=== PATIENT | female | born 1990 | race Caucasian/White ===

== ENCOUNTER 2022-10-15 22:56 | Emergency (ER) | payer MEDICAID, SELFPAY ==
[2022-10-15 22:59] VITALS: BP 136/90; PULSE 74; RESP 19; TEMP 37.3; O2SAT 100
[2022-10-15 23:37] LABS: Bilirubin Negative (Negative); Blood Negative (Negative); Clarity Sl Cloudy (Clear); Glucose Negative (Negative); Ketones Negative (Negative); Leukocyte Esterase Negative (Negative); Nitrite Negative (Negative); Urobilinogen 0.2 mg/dL (Up to 0.2); pH 5.5 (5-8)
--- NOTE | 2022-10-16 00:07 | W.ED.GENAD ---
Discharge Plan Disposition Patient Disposition: Home Condition: Stable Discharge Details Clinical Impression: Urinary tract infection Primary Care Provider: Unknown,Unknown ED Provider: Tonya Wynn Home Meds and New Rx's Prescriptions: New ciprofloxacin HCl [Cipro] 250 mg tablet 250 mg PO Q12H Qty: 14 0RF phenazopyridine [Pyridium] 200 mg tablet 200 mg PO TID PRNQty: 6 0RF No Action bupropion HCl 100 mg Tablet 100 mg PO 1XD Discharge Instructions Instructions: Urinary Tract Infection in Women (ED) Additional Instructions: Drink plenty of fluids including acidic juices. Meds as prescribed. Return to ED for flank pain, worsening belly pain, fever of 100.4 or above, etc. Medical Decision Making Patient's [id number] test was negative here. She does tell me that she had her tubes removed. Her urine is negative and I explained to her that some of the new guidelines out say that and in sexually active woman of childbearing age they should be treated if they are symptomatic for UTI. She was quite grateful. She is monogamous with her . She has no symptoms of STDs. Medical Records Medical records reviewed: Yes I reviewed the patient's medical records. Lab Data Lab results reviewed: Yes I reviewed the patient's lab results. HPI General Date/Time Provider Initiated Documentation: 10/15/22 23:26. HPI Narrative: This 32-year-old female patient presents with a chief complaint of UTI symptoms. Patient reports that she had a urinary tract infection treated a month ago with Macrodantin she says the symptoms better but never really went away and then worsened again over the past week. She reports both urgency and frequency. She says she has pressure down below when she voids. She has no flank or abdominal pain. There is no fever or chills. She denies hematuria. She reports she has had many urinary tract infections over the years and is extremely uncomfortable. Symptoms have been constant in nature today. She did go to [facility] where she had some blood work and a urine done that were negative. The provider thought this was related to her bupropion which she has been on for 10 years. Related Data Home Medications Medication Instructions Recorded Confirmed bupropion HCl 100 mg tablet 100 mg PO 1XD 10/16/22 10/16/22 ciprofloxacin HCl 250 mg tablet 250 mg PO Q12H #14 tabs 10/16/22 (Cipro) phenazopyridine 200 mg tablet 200 mg PO TID PRN 6 doses #6 tabs 10/16/22 (Pyridium) Previous Rx's Medication Instructions Recorded ciprofloxacin HCl 250 mg tablet 250 mg PO Q12H #14 tabs 10/16/22 (Cipro) phenazopyridine 200 mg tablet 200 mg PO TID PRN 6 doses #6 tabs 10/16/22 (Pyridium) Allergies Allergy/AdvReac Type Severity Reaction Status Date / Time sulfamethoxazole AdvReac Unverified 10/16/22 00:31 [From Bactrim] trimethoprim [From Bactrim] AdvReac Unverified 10/16/22 00:31 General Stated Complaint: Urinary YOLANDA: 4 Review of Systems Constitutional Constitutional: Denies chills, Denies fever(s), Denies headache(s) and Denies weakness Eyes Eyes: Denies diplopia and Reports other (no redness) ENT Ears, Nose, Mouth, and Throat: Denies otalgia, Denies headache(s), Denies nasal congestion, Denies nasal discharge, Denies neck pain and Denies sore throat Cardiovascular Cardiovascular: Denies chest pain, Denies palpitations and Denies dyspnea Respiratory Respiratory: Denies cough and Denies dyspnea Gastrointestinal Gastrointestinal: Denies abdominal pain, Denies diarrhea, Denies nausea and Denies vomiting Genitourinary Genitourinary: Reports dysuria, Reports urinary urgency, Denies vaginal discharge, Denies vaginal odor, Denies vaginal pruritus and Reports other (Has urinary frequency as well) Musculoskeletal Musculoskeletal: Denies myalgias, Denies muscle weakness, Denies neck pain, Denies numbness and Reports other (edema) Integumentary/Breasts Skin/Breast: Denies change in pigmentation and Denies rash Neurologic Neurologic: Denies headache(s), Denies numbness and Denies weakness Endocrine Endocrine: Denies palpitations PFSH All Active Problems Urinary tract infection (Acute) Social History Smoking/Tobacco Use Status: Never Smoking risk assessment performed?: Yes Alcohol Intake: current Alcohol Intake frequency: a few times a month Drug use: Never Substance use type: does not use Do you feel safe at home: Yes Do you feel safe in your relationship?: Yes Exam Const General: no acute distress, well developed, well groomed and not in acute distress Nutritional Appearance: well nourished Orientation: alert and oriented x3 HENME Head: normocephalic and atraumatic Ears: external ears normal Mouth: oropharynx normal and moist mucous membranes Throat: posterior oropharynx normal Eyes Conjunctivae: conjunctivae normal Neck Neck: full ROM and supple Chest Chest: normal inspection of the chest Resp Effort & Inspection: normal respiratory effort Auscultation: clear to auscultation bilaterally Cardio Rate: regular rate Rhythm: regular rhythm Heart Sounds: no murmurs and no rubs GI Inspection: normal to inspection Palpation: soft, nontender and other (non distended) Auscultation: normal bowel sounds Skin General skin exam: no rashes or lesions noted and other (pink, warm, dry) Neuro General: patient alert, patient awake and patient oriented x3 Speech: speech normal Motor: other (CANDELARIO) Sensory Exam: no sensory deficits noted Extrem General: normal to inspection, full ROM and pedal edema present Psych Mental Status: mental status grossly normal Speech and Movement: speech and movement normal Affect: normal affect Course Vital Signs Vital signs: Vital Signs Temperature 37.3 C 10/15/22 22:59 Pulse 74 10/15/22 22:59 Respiratory Rate 19 10/15/22 22:59 Blood Pressure 136/90 10/15/22 22:59 Pulse Oximetry 100 10/15/22 22:59 Temperature 37.3 C 10/15/22 22:59 Temperature Source Temporal Artery Scan 10/15/22 22:59 Pulse 74 10/15/22 22:59 Respiratory Rate 19 10/15/22 22:59 Respiratory Effort Normal 10/15/22 23:03 Blood Pressure 136/90 10/15/22 22:59 Blood Pressure Position Sitting 10/15/22 22:59 Pulse Oximetry 100 10/15/22 22:59 Oxygen Delivery Method Room Air 10/15/22 22:59 Oxygen Flow Rate 0 10/15/22 22:59 Pain Level 8 10/15/22 22:59 Lab/Test Results Lab/Test Results: Laboratory Tests Range/Units 10/15/22 23:28 Urine Color (Yellow) Yellow Urine Clarity (Clear) Sl Cloudy Urine pH (5-8) 5.5 Ur Specific [place] (1.005-1.025) 1.020 Urine Protein (Negative) mg/dL Negative Urine Ketones (Negative) mg/dL Negative Urine Blood (Negative) Negative Urine Nitrite (Negative) Negative Urine Bilirubin (Negative) Negative Urine Urobilinogen (Up to 0.2) mg/dL 0.2 Ur Leukocyte Esterase (Negative) Negative Urine Glucose (Negative) mg/dL Negative POC- Test(urine) Negative
[2022-10-16 00:32] VITALS: BP 117/72; PULSE 72; O2SAT 99
[2022-10-16] MEDS: Ciprofloxacin 250 MG TAB PO (00:47)
[2022-10-16] MEDS: Phenazopyridine 200 MG TAB PO (00:47)
== END 2022-10-16 00:48 | disposition home or self-care (01) ==
PROVIDERS: Emergency Provider Emergency Medicine
DX: N39.0 Urinary tract infection, site not specified (principal)
CPT/HCPCS: 81025; 99283; 81003; 99284

== ENCOUNTER 2022-10-22 09:44 | Emergency (ER) | payer MEDICAID, SELFPAY ==
[2022-10-22 09:49] VITALS: BP 120/86; PULSE 92; RESP 18; TEMP 36.8; O2SAT 100
--- NOTE | 2022-10-22 10:10 | ED.GENADUL_ITS ---
Discharge Plan Disposition Patient Disposition: Home Discharge Details Chief Complaint: Urinary Clinical Impression: Ovarian cyst Primary Care Provider: Unknown,Unknown ED Provider: Juan David Penny Home Meds and New Rx's Prescriptions: No Action ciprofloxacin HCl [Cipro] 250 mg tablet 250 mg PO Q12H Qty: 14 0RF phenazopyridine [Pyridium] 200 mg tablet 200 mg PO TID PRNQty: 6 0RF bupropion HCl 100 mg Tablet 100 mg PO 1XD Discharge Instructions Instructions: Ovarian Cyst (ED) Additional Instructions: Please return to obtain pelvic ultrasound tomorrow. Please follow-up with women's health. Please return to the emergency department for any worsening symptoms Medical Decision Making 32-year-old female presents with multiple weeks of genitourinary symptomatology, initially diagnosed with urinary tract infection has not had any improvement despite 2 courses of oral antibiotics. Denies vaginal discharge or bleeding however does have vaginal discomfort. He is in a monogamous relationship with her no history of STIs. Patient is afebrile nontoxic nonperitoneal. Must consider genitourinary infection such as bacterial vaginosis, trichomoniasis, candidiasis, herpes genitalia versus cervical dysplasia versus malignancy. Lower suspicion for persistent/recurrent UTI. Lower suspicion for pyelonephritis. Patient will benefit from pelvic ultrasound, will perform pelvic examination vaginal pathogen swab GC swab; will arrange for women's wellness follow-up and referral for pelvic ultrasound tomorrow. Pending examination consider further labs and imaging as needed. 10: 32 normal examination both internal and external, no evidence of mucosal irritation or infection, no vaginal discharge, scant liquid dark blood consistent with patient starting her menses today. However given persistence of symptoms now with discomfort in lower abdomen and flank have discussed work-up options for patient. We will plan to continue with women's health close follow- up and ultrasound tomorrow however given progression of symptoms will obtain basic labs and CT abdomen pelvis today. 12: 12 patient resting comfortably no acute distress. Evidence of right ovarian cyst. Labs and urine unremarkable. Vaginal pathogen swab negative. Patient will follow-up with women's wellness and will be given next day ultrasound for pelvic ultrasound HPI General Date/Time Provider Initiated Documentation: 10/22/22 09:45 . HPI Narrative: 32-year-old female presents with multiple weeks of genitourinary symptoms initially treated with 2 courses of oral antibiotics for presumptive UTI given dysuria; patient has developed lower abdominal discomfort and internal vaginal discomfort. Denies vaginal discharge or bleeding. Has had her fallopian tubes removed during section in the past. Patient is in monogamous relationship with . No history of STIs Related Data Home Medications Medication Instructions Recorded Confirmed bupropion HCl 100 mg tablet 100 mg PO 1XD 10/16/22 10/16/22 ciprofloxacin HCl 250 mg tablet 250 mg PO Q12H #14 tabs 10/16/22 (Cipro) phenazopyridine 200 mg tablet 200 mg PO TID PRN 6 doses #6 tabs 10/16/22 (Pyridium) Previous Rx's Medication Instructions Recorded ciprofloxacin HCl 250 mg tablet 250 mg PO Q12H #14 tabs 10/16/22 (Cipro) phenazopyridine 200 mg tablet 200 mg PO TID PRN 6 doses #6 tabs 10/16/22 (Pyridium) Allergies Allergy/AdvReac Type Severity Reaction Status Date / Time sulfamethoxazole AdvReac Unverified 10/22/22 09:54 [From Bactrim] trimethoprim [From Bactrim] AdvReac Unverified 10/22/22 09:54 General Stated Complaint: Urinary YOLANDA: 3 Review of Systems Narrative: Review of Systems Constitutional: negative Eyes: negative ENT: negative Cardiovascular: negative Respiratory: negative Gastrointestinal: Abdominal pain : Vaginal discomfort Musculoskeletal: negative Skin: negative Neurologic: negative Psych: negative PFSH All Active Problems (Updated 10/22/22 @ 12:13 by Juan David Penny MD) Urinary tract infection (Acute) Ovarian cyst (Acute) Social History Smoking/Tobacco Use Status: Never Smoking risk assessment performed?: Yes Alcohol Intake: current Alcohol Intake frequency: a few times a month Drug use: Never Substance use type: does not use Do you feel safe at home: Yes Do you feel safe in your relationship?: Yes Exam Narrative Exam Narrative: Physical Examination General: alert, awake, cooperative, resting comfortably, no acute distress HEENT: normocephalic, atraumatic; PERRL, EOM intact, conjunctiva normal; no nasal discharge; moist mucous membranes, oral and pharyngeal mucosa normal, tolerating secretions Neck: supple, trachea midline; full ROM Chest: normal to inspection Respiratory: normal respiratory effort, speaking in full sentences, clear to auscultation, no wheezing, rales or rhonchi Cardiac: regular rate, regular rhythm, S1S2 intact, no murmurs rubs or gallops GI: abdomen soft, non-tender, non-distended; no palpable mass or hepatosplenomegaly : Normal external genitalia, scant dark liquid blood in vaginal vault, unable to completely visualize cervix, no evidence of vaginal laceration or mucosal irritation, no discharge Skin: no lesions, rashes or trauma appreciated Neuro: AAOx3, normal speech, moving all extremities Psych: Appropriate mood and affect Course Vital Signs Vital signs: Vital Signs Temperature 36.8 C 10/22/22 09:49 Pulse 92 H 10/22/22 09:49 Respiratory Rate 18 10/22/22 09:49 Blood Pressure 120/86 10/22/22 09:49 Pulse Oximetry 100 10/22/22 09:49 Temperature 36.8 C 10/22/22 09:49 Temperature Source Skin 10/22/22 09:49 Pulse 92 H 10/22/22 09:49 Respiratory Rate 18 10/22/22 09:49 Respiratory Effort Normal 10/22/22 09:53 Blood Pressure 120/86 10/22/22 09:49 Blood Pressure Position Sitting 10/22/22 09:49 Pulse Oximetry 100 10/22/22 09:49 Oxygen Delivery Method Room Air 10/22/22 09:49 Oxygen Flow Rate 0 10/22/22 09:49 Lab/Test Results Lab/Test Results: POC- Test(urine) Negative
--- NOTE | 2022-10-22 10:15 | DI.CT_ITS ---
Exam(s) CT ABDOMEN PELVIS W EXAM: CT ABDOMEN PELVIS W CLINICAL HISTORY: pelvic pain, abd pain, flank pain. TECHNIQUE: Imaging Protocol: Axial computed tomography images with coronal and sagittal reformatted images were created and reviewed CONTRAST MATERIAL: Intravenous: Omnipaque 350 Contrast volume:100 ml Oral: yes / no COMPARISON: No exams were available for comparison FINDINGS: ABDOMEN: Lung Bases: Normal where visualized. Liver: Normal density. No measurable mass. Gallbladder and biliary tract: No radiodense calculus or dilation. Pancreas: Normal density, no abnormal calcifications or inflammatory process. Spleen: Normal. Kidneys: Normal size, contour and axis. No radiodense stones or obstructive uropathy. No suspicious m asses seen. Adrenal glands: No masses seen. Abdominal Aorta: Abdominal portion non-dilated. Soft tissues: Unremarkable. PELVIS: Bladder: No gross wall thickening. No calculi.No focal mass. Bowel: No obstruction. No bowel wall thickening. Appendix normal. Peritoneal cavity: No ascites, collection or mesenteric inflammatory response. Bones: Unremarkable for age. Reproductive organs: Uterus retroverted. Mildly heterogeneous myometrium. Dominant follicle right ovary. Lymph nodes: Unremarkable. Impression: No acute abnormality in the abdomen or pelvis. RADIATION DOSE DELIVERED: 784.07mGy.cm Total DLP DATA REPOSITORY: All CT scans at this facility are submitted to the National Radiology Data Registry (NRDR) Dose Index Registry (DIR) with the [employer] (ACR). RADIATION OPTIMIZATION: All CT scans at this facility use at least one of these dose optimization te chniques: automated exposure control; mA and/or kV adjustment per patient size (includes targeted exa ms where dose is matched to clinical indication); or iterative reconstruction.
[2022-10-22 10:30] LABS: Clarity Clear (Clear)
[2022-10-22 10:35] LABS: Specific Gravity 1.014 (1.005-1.025)
[2022-10-22 10:38] LABS: Abs Immature Grans 0.02 10^3/uL (0.0-0.06); Absolute Basophil Count 0.08 10^3/uL (0.0-0.2); Absolute Eosinophil Count 0.09 10^3/uL (0.0-0.7); Absolute Lymphocyte Count 2.25 10^3/uL (1.2-3.4); Absolute Monocyte Count 0.41 10^3/uL (0.1-0.8); Absolute Neutrophil Count 3.37 10^3/uL (1.2-6.7); Basophils % 1.3; Eosinophils % 1.4; HGB 14.6 g/dL (11.2-15.7); Immature Grans % 0.3; Lymphocytes % 36.2; MCH 28.7 pg (27.0-33.0); MCHC 33.2 % (32.0-36.0); MCV 87 fL (80-95); MPV 8.8 fL (8.0-11.0); Monocytes % 6.6; Neutrophils % 54.2; Platelet Count 354 10^3/uL (130-400); RBC 5.08 10^6/uL (3.93-5.22); RDW 13.3 % (11.7-14.6); RDW-SD 42.4 fL; WBC 6.22 10^3/uL (4.4-10.8)
[2022-10-22] MEDS: Ketorolac 15 MG/ML VIAL IVP (10:38)
[2022-10-22 10:40] LABS: Bacteria Few HPF (Negative); C & S Indicated? No/Sq. Contamination; Casts Negative LPF (Negative); Crystals Negative HPF (Negative); Epithelial Cells Many HPF (Negative); Mucus Negative (Negative)
[2022-10-22] MEDS: Omnipaque 350 MG/ML 100 ML BTL IJ (10:45)
[2022-10-22] MEDS: Normal Saline Flush 10 ML SYR IJ (10:48)
[2022-10-22] MEDS: Normal Saline - Diluent 50 ML VIAL IV (10:49)
[2022-10-22 10:53] LABS: ALT 18 U/L (14-59); AST 11 U/L (15-37); Albumin 4.2 g/dL (3.4-5.0); Alkaline Phosphatase 65 U/L (46-116); Anion Gap 7.2 mmol/L (3-11); BUN 7 mg/dL (7-18); Bilirubin, Total 0.4 mg/dL (0.2-1.0); CO2 26.8 mmol/L (21.0-32.0); CREATININE 0.8 mg/dL (0.55-1.02); Chloride 106 mmol/L (98-107); Estimated GFR 99.71 (mL/min/1.73m2); Glucose 86 mg/dL (74-106); Potassium 4.2 mmol/L (3.5-5.1); Sodium 140 mmol/L (136-145); Total Protein 7.9 g/dL (6.4-8.2)
--- NOTE | 2022-10-22 11:08 | DI.VRAD_ITS ---
PROCEDURE INFORMATION: Exam: CT Abdomen And Pelvis With Contrast Exam date and time: 10/22/2022 10:50 AM Age: 32 years old Clinical indication: Abdominal pain; Flank; Other: Not specified - pelvic pain; Additional info: Pelvic pain, abd pain, flank pain TECHNIQUE: Imaging protocol: Computed tomography of the abdomen and pelvis with contrast. Contrast material: OMNIPAQUE 350; Contrast volume: 100 ml; Contrast route: INTRAVENOUS (IV); COMPARISON: No relevant prior studies available. FINDINGS: Liver: Normal. No mass. Gallbladder and bile ducts: Normal. No calcified stones. No ductal dilation. Pancreas: Normal. No ductal dilation. Spleen: Normal. No splenomegaly. Adrenal glands: Normal. No mass. Kidneys and ureters: Normal. No hydronephrosis. Stomach and bowel: Unremarkable. No obstruction. No mucosal thickening. Appendix: No evidence of appendicitis. Intraperitoneal space: Unremarkable. No free air. No significant fluid collection. Vasculature: Unremarkable. No abdominal aortic aneurysm. Lymph nodes: Unremarkable. No enlarged lymph nodes. Urinary bladder: Unremarkable as visualized. Reproductive: 2.3 cm Simple cyst right ovary. Bones/joints: Unremarkable. No acute fracture. Soft tissues: Unremarkable. IMPRESSION: 2.3 cm Simple cyst right ovary. Recommend duplex assessment if torsion is suspected Dictated and Authenticated by: Jordan Peoples MD. Ordering:JOVANNA Fall MD
--- NOTE | 2022-10-22 13:13 | NUR.NOTE ---
Addendum entered by Yecenia Stack 10/22/22 13:17: Request faxed to for pelvic US/ right ovarian cyst and pelvic pain/follow up [facility], to be done October 23, 2022 am. Original Note: Nursing Note: Referral faxed to [facility] for ovarian cyst/ 1 week appt.
[2022-10-23 14:18] LABS: Chlamydia Result Negative (Negative); GC Result Negative (Negative)
== END 2022-10-22 12:21 | disposition home or self-care (01) ==
PROVIDERS: Emergency Provider Emergency Medicine
DX: N83.201 Unspecified ovarian cyst, right side (principal); R10.9 Unspecified abdominal pain; M54.9 Dorsalgia, unspecified
CPT/HCPCS: 80053; 81025; 87491; 87591; 96374; 99285; 74177; 81003; 81015; 85025; 87480; 87510; 87660; 99284; J1885; J3490

== ENCOUNTER 2022-10-23 16:25 | Outpatient (CLI) | payer MEDICAID, SELFPAY ==
--- NOTE | 2022-10-23 | DI.US_ITS ---
Exam(s) US PELVIS TRANSVAGINAL EXAM: US PELVIS TRANSVAGINAL CLINICAL HISTORY: RT OVARIAN CYST, PELVIC PAIN. TECHNIQUE: Transabdominal and transvaginal pelvic ultrasound was performed using standard protocol. COMPARISON: CT CT ABDOMEN PELVIS W from 10/22/2022 FINDINGS: UTERUS: Position: Anteverted. Size: 6.7 long by 4.1 AP by 6.7 transverse cm Endometrium: 0.2 cm. Normal for patient's menstrual status. Myometrium: Unremarkable. Cervix: Unremarkable. OVARIES: Right: 3.3 x 2.2 x 2.6 cm Cyst or mass: No suspicious cystic or solid masses. The 2.1 cm cyst on the CT scan from 10/22/2022 is not visualized on this examination. Left: 2.9 x 1.7 x 2.1 cm Cyst or mass: No suspicious cystic or solid masses. DOPPLER: Color: Symmetric and uniform flow to both ovaries. CUL-DE-SAC: Free fluid: None. Other: None. IMPRESSION: 1. Normal-appearing uterus with endometrial stripe within normal limits. 2. Unremarkable bilateral ovaries. DATA REPOSITORY:
== END 2022-10-23 16:45 ==
PROVIDERS: Visit Provider Emergency Medicine
DX: R10.2 Pelvic and perineal pain (principal); N83.201 Unspecified ovarian cyst, right side
CPT/HCPCS: 76830; 76856